=== PATIENT | male | born 1940 | race Caucasian/White ===

== ENCOUNTER → 2019-07-21 15:35 | Outpatient (REF) | payer OTHER, SELFPAY | LOC: ANHLAB 15:35 | PROVIDERS: Visit Provider Nurse Practitioner | DX: C44.319 Basal cell carcinoma of skin of other parts of face (principal) | CPT/HCPCS: 88305 ==

== ENCOUNTER → 2019-08-31 08:25 | Outpatient (REF) | payer OTHER, SELFPAY | LOC: ANHLAB 08:25 | PROVIDERS: Visit Provider Nurse Practitioner | DX: C44.319 Basal cell carcinoma of skin of other parts of face (principal) | CPT/HCPCS: 88305; 88331 ==